=== PATIENT | male | born 1965 | race Caucasian/White ===

== ENCOUNTER 2018-02-09 18:37 | Emergency (ER) | payer OTHER ==
[2018-02-09 18:48] VITALS: BP 117/66; PULSE 97; RESP 18; TEMP 97.8
[2018-02-09] MEDS ORDERED: SODIUM CHLORIDE 0.9% 1,000 ML IV STA (19:02)
--- NOTE | 2018-02-09 19:28 | ED ---
General Adult HPI - General Chief complaint: Seizure Stated complaint: Seizure Time Seen by Provider: 02/09/18 18:43 Source: patient, EMS, RN notes reviewed, old records reviewed Mode of arrival: EMS Limitations: no limitations - History of Present Illness Initial comments: This is a 52-year-old male presents emergency department today chief complaint of possible seizure. Patient reports that [place] the [place] and his friends called him because he was shaking. He states that he was not having a seizure. He's was brought in by EMS. Patient is alert and oriented. Denies any head trauma. - Related Data Home Medications Medication Instructions Recorded Confirmed No Known Home Medications 05/02/16 02/09/18 Allergies Allergy/AdvReac Type Severity Reaction Status Date / Time No Known Allergies Allergy Verified 02/09/18 19:05 Review of Systems ROS Statement: Those systems with pertinent positive or pertinent negative responses have been documented in the HPI. ROS Other: All systems not noted in ROS Statement are negative. Past Medical History Past Medical History: No Reported History, Seizure Disorder Additional Past Medical History / Comment(s): back pain alcohol induced seizure History of Any Multi-Drug Resistant Organisms: None Reported Past Surgical History: No Surgical Hx Reported Past Psychological History: No Psychological Hx Reported Smoking Status: Current every day smoker Past Alcohol Use History: Daily, Heavy Past Drug Use History: None Reported General Exam - General Exam Comments Initial Comments: 52-year-old male. Alert and oriented 4. No acute distress Limitations: no limitations General appearance: alert, in no apparent distress Head exam: Present: atraumatic, normocephalic, normal inspection Eye exam: Present: normal appearance, PERRL, EOMI. Absent: scleral icterus, conjunctival injection, periorbital swelling ENT exam: Present: normal exam, mucous membranes moist Neck exam: Present: normal inspection. Absent: tenderness, meningismus, lymphadenopathy Respiratory exam: Present: normal lung sounds bilaterally. Absent: respiratory distress, wheezes, rales, rhonchi, stridor Cardiovascular Exam: Present: regular rate, normal rhythm, normal heart sounds. Absent: systolic murmur, diastolic murmur, rubs, gallop, clicks Psychiatric exam: Present: normal affect, normal mood Skin exam: Present: warm, dry, intact, normal color. Absent: rash Course Vital Signs 02/09/18 18:45 Temperature 97.8 F Pulse Rate 97 Respiratory 18 Rate Blood Pressure 117/66 O2 Sat by Pulse 95 Oximetry Medical Decision Making - Medical Decision Making Patient through male says wrist Department via EMS chief complaint of possible seizure. Apparently friends called because her shaking the ground. He states they did not have a seizure. He states that he does not want be here. He is refusing all lab work or blood work testing. Patient alert and oriented 4. He appears in no acute distress. Patient agrees to sign AMA form. Disposition Clinical Impression: Episode of shaking Disposition: Left Against Medical Advice Condition: Stable Is patient prescribed a controlled substance at d/c from ED?: No When asked, does pt state using other controlled substances?: No If prescribed controlled substance>3 days was MAPS reviewed?: No If opioid is for acute pain is fill amount 7 days or less?: No If Rx opioid, was Start Talking consent form obtained?: No Referrals: None,Stated [Primary Care Provider] - 1-2 days Time of Disposition: 19:27
== END 2018-02-09 19:26 | disposition left against medical advice (07) ==
LOC: EC 18:37
DX: R25.9 Unspecified abnormal involuntary movements (principal); F17.200 Nicotine dependence, unspecified, uncomplicated; Z53.20 Procedure and treatment not carried out because of patient's decision for unspecified reasons
CPT/HCPCS: 99284